=== PATIENT | male | born 1955 | race Caucasian/White ===

== ENCOUNTER 2016-09-21 20:33 | Inpatient (IN) | payer MEDICARE ==
[~2016-09-21] VITALS: Ht 185.4 cm; Wt 133.0 kg
[~2016-09-21 20:33] MED LIST: BENTYL20 MG PO; CHILDREN'S ASPI81 MG PO; DIABETA2.5 MG PO; GLUCOPHAGE1000 MG PO; HALDOL0.5 MG PO; HCTZ25 MG PO; KEFLEX500 MG PO; MOBIC7.5 MG PO; NORVASC5 MG PO; PRAVASTATIN SOD20 MG PO; PRAZOSIN HCL1 MG PO; SULFAMETHOXAZO1 EACH PO; TYLENOL325 M1 PO; ZANTAC150 MG PO; ZESTRIL40 MG PO; ZOLOFT100 MG PO
[2016-09-21 22:05] LABS: BASO % 0.4 % (0.2-1.2); EOS # 0.2 10_X3_uL (0.0-0.5); EOS % 2.1 % (0.8-7.0); GRAN # 7.8 10_X3_uL (1.8-5.4); GRAN % 72.7 % (34.0-67.9); HEMATOCRIT 34.6 % (40-51); HEMOGLOBIN 11.5 g/dL (13.7-17.5); LYMPH # 1.9 10_X3_uL (1.3-3.6); LYMPH % 17.9 % (21.8-53.1); MEAN CORPUSCULAR HEMOGLOBIN 28.3 pg (27.0-33.0); MEAN CORPUSCULAR HGB CONC 33.2 g/dL (32.0-36.0); MEAN CORPUSCULAR VOLUME 85.2 fL (79-92); MEAN PLATELET VOLUME 10.7 fl (7.5-11.5); MONO # 0.7 10_X3_uL (0.3-0.8); MONO % 6.9 % (5.3-12.2); PLATELET COUNT 302 x10_3/uL (163-337); RED BLOOD COUNT 4.06 x10_6/uL (4.6-6.1); RED CELL DISTRIBUTION WIDTH 14.5 % (11.6-14.4); WHITE BLOOD COUNT 10.7 x10_3/uL (4.2-9.1)
[2016-09-21 22:21] LABS: ALBUMIN 3.3 gm/dL (3.4-5.0); BILIRUBIN,TOTAL 0.21 mg/dL (0.0-1.0); CREATININE 1.4 mg/dL (0.6-1.3); POTASSIUM 5.1 mmol/L (3.5-5.1); TOTAL PROTEIN 7.6 gm/dL (6.4-8.2)
[2016-09-21 23:27] LABS: ERYTHROCYTE SEDIMENTATION RATE 8 mm/hr (0-10)
[2016-09-22 07:21] LABS: HEMATOCRIT 28.2 % (40-51); HEMOGLOBIN 9.2 g/dL (13.7-17.5); MEAN CORPUSCULAR HEMOGLOBIN 28.5 pg (27.0-33.0); MEAN CORPUSCULAR HGB CONC 32.6 g/dL (32.0-36.0); MEAN CORPUSCULAR VOLUME 87.3 fL (79-92); MEAN PLATELET VOLUME 10.9 fl (7.5-11.5); RED BLOOD COUNT 3.23 x10_6/uL (4.6-6.1); RED CELL DISTRIBUTION WIDTH 14.5 % (11.6-14.4); WHITE BLOOD COUNT 9.4 x10_3/uL (4.2-9.1)
[2016-09-22 07:39] LABS: BLOOD UREA NITROGEN 30 mg/dL (7-18); CALCIUM 8.3 mg/dL (8.7-10.7); CARBON DIOXIDE 23 mmol/L (21-32); CREATININE 1.2 mg/dL (0.6-1.3); GLUCOSE,RANDOM 139 mg/dL (70-99); SODIUM 139 mmol/L (136-145)
[2016-09-24 06:51] LABS: BASO % 0.4 % (0.2-1.2); EOS # 0.3 10_X3_uL (0.0-0.5); EOS % 4.3 % (0.8-7.0); GRAN # 4.7 10_X3_uL (1.8-5.4); GRAN % 62.9 % (34.0-67.9); HEMATOCRIT 27.6 % (40-51); HEMOGLOBIN 8.5 g/dL (13.7-17.5); LYMPH # 1.8 10_X3_uL (1.3-3.6); LYMPH % 23.6 % (21.8-53.1); MEAN CORPUSCULAR HEMOGLOBIN 26.7 pg (27.0-33.0); MEAN CORPUSCULAR HGB CONC 30.8 g/dL (32.0-36.0); MEAN CORPUSCULAR VOLUME 86.8 fL (79-92); MEAN PLATELET VOLUME 10.7 fl (7.5-11.5); MONO # 0.7 10_X3_uL (0.3-0.8); MONO % 8.8 % (5.3-12.2); PLATELET COUNT 283 x10_3/uL (163-337); RED BLOOD COUNT 3.18 x10_6/uL (4.6-6.1); RED CELL DISTRIBUTION WIDTH 14.3 % (11.6-14.4); WHITE BLOOD COUNT 7.5 x10_3/uL (4.2-9.1)
[2016-09-24 06:58] LABS: CALCIUM 8.3 mg/dL (8.7-10.7); CARBON DIOXIDE 24 mmol/L (21-32); CREATININE 1.2 mg/dL (0.6-1.3); GLUCOSE,RANDOM 126 mg/dL (70-99); POTASSIUM 4.7 mmol/L (3.5-5.1); SODIUM 142 mmol/L (136-145)
[2016-09-24 07:16] LABS: BLOOD UREA NITROGEN 22 mg/dL (7-18)
[2016-09-25 07:34] LABS: BASO % 0.4 % (0.2-1.2); EOS # 0.3 10_X3_uL (0.0-0.5); EOS % 4.5 % (0.8-7.0); GRAN # 5.2 10_X3_uL (1.8-5.4); GRAN % 70.8 % (34.0-67.9); HEMATOCRIT 28.5 % (40-51); HEMOGLOBIN 9.6 g/dL (13.7-17.5); LYMPH # 1.3 10_X3_uL (1.3-3.6); LYMPH % 17.1 % (21.8-53.1); MEAN CORPUSCULAR HEMOGLOBIN 28.9 pg (27.0-33.0); MEAN CORPUSCULAR HGB CONC 33.7 g/dL (32.0-36.0); MEAN CORPUSCULAR VOLUME 85.8 fL (79-92); MONO # 0.5 10_X3_uL (0.3-0.8); MONO % 7.2 % (5.3-12.2); PLATELET COUNT 297 x10_3/uL (163-337); RED BLOOD COUNT 3.32 x10_6/uL (4.6-6.1); RED CELL DISTRIBUTION WIDTH 14.2 % (11.6-14.4); WHITE BLOOD COUNT 7.4 x10_3/uL (4.2-9.1)
[2016-09-25 07:44] LABS: BLOOD UREA NITROGEN 18 mg/dL (7-18); CALCIUM 8.3 mg/dL (8.7-10.7); CARBON DIOXIDE 23 mmol/L (21-32); CREATININE 1.1 mg/dL (0.6-1.3); GLUCOSE,RANDOM 137 mg/dL (70-99); POTASSIUM 4.5 mmol/L (3.5-5.1); SODIUM 141 mmol/L (136-145)
[2016-09-26 06:24] LABS: BASO % 0.4 % (0.2-1.2); EOS # 0.4 10_X3_uL (0.0-0.5); EOS % 4.6 % (0.8-7.0); GRAN # 5.4 10_X3_uL (1.8-5.4); GRAN % 68.3 % (34.0-67.9); HEMATOCRIT 28.7 % (40-51); HEMOGLOBIN 9.5 g/dL (13.7-17.5); LYMPH # 1.6 10_X3_uL (1.3-3.6); LYMPH % 19.7 % (21.8-53.1); MEAN CORPUSCULAR HEMOGLOBIN 28.6 pg (27.0-33.0); MEAN CORPUSCULAR HGB CONC 33.1 g/dL (32.0-36.0); MEAN CORPUSCULAR VOLUME 86.4 fL (79-92); MONO # 0.6 10_X3_uL (0.3-0.8); PLATELET COUNT 280 x10_3/uL (163-337); RED BLOOD COUNT 3.32 x10_6/uL (4.6-6.1); RED CELL DISTRIBUTION WIDTH 14.3 % (11.6-14.4); WHITE BLOOD COUNT 7.9 x10_3/uL (4.2-9.1)
[2016-09-26 06:44] LABS: ALBUMIN 2.6 gm/dL (3.4-5.0); ALKALINE PHOSPHATASE 105 U/L (50-136); ALT/SGPT 6 U/L (7.53-40.17); AST/SGOT 12 U/L (6.66-35.34); BLOOD UREA NITROGEN 19 mg/dL (7-18); CALCIUM 8.1 mg/dL (8.7-10.7); CARBON DIOXIDE 23 mmol/L (21-32); CREATININE 1.1 mg/dL (0.6-1.3); GLUCOSE,RANDOM 139 mg/dL (70-99); POTASSIUM 4.9 mmol/L (3.5-5.1); SODIUM 138 mmol/L (136-145); TOTAL PROTEIN 5.9 gm/dL (6.4-8.2)
[2016-09-26 06:50] LABS: BILIRUBIN,TOTAL < 0.15 mg/dL (0.0-1.0)
[2016-09-27 07:08] LABS: BASO % 0.4 % (0.2-1.2); EOS # 0.3 10_X3_uL (0.0-0.5); EOS % 4.6 % (0.8-7.0); GRAN # 4.5 10_X3_uL (1.8-5.4); HEMATOCRIT 28.2 % (40-51); LYMPH # 1.8 10_X3_uL (1.3-3.6); LYMPH % 24.8 % (21.8-53.1); MEAN CORPUSCULAR HEMOGLOBIN 27.6 pg (27.0-33.0); MEAN CORPUSCULAR HGB CONC 31.9 g/dL (32.0-36.0); MEAN CORPUSCULAR VOLUME 86.5 fL (79-92); MEAN PLATELET VOLUME 10.1 fl (7.5-11.5); MONO # 0.5 10_X3_uL (0.3-0.8); MONO % 7.2 % (5.3-12.2); PLATELET COUNT 300 x10_3/uL (163-337); RED BLOOD COUNT 3.26 x10_6/uL (4.6-6.1); RED CELL DISTRIBUTION WIDTH 14.4 % (11.6-14.4); WHITE BLOOD COUNT 7.2 x10_3/uL (4.2-9.1)
[2016-09-27 07:23] LABS: BLOOD UREA NITROGEN 19 mg/dL (7-18); CALCIUM 8.3 mg/dL (8.7-10.7); CARBON DIOXIDE 25 mmol/L (21-32); CREATININE 1.2 mg/dL (0.6-1.3); GLUCOSE,RANDOM 133 mg/dL (70-99); POTASSIUM 4.5 mmol/L (3.5-5.1); SODIUM 141 mmol/L (136-145)
[2016-09-28 07:54] LABS: HEMATOCRIT 29.8 % (40-51); HEMOGLOBIN 9.6 g/dL (13.7-17.5); MEAN CORPUSCULAR HEMOGLOBIN 27.8 pg (27.0-33.0); MEAN CORPUSCULAR HGB CONC 32.2 g/dL (32.0-36.0); MEAN CORPUSCULAR VOLUME 86.4 fL (79-92); MEAN PLATELET VOLUME 9.9 fl (7.5-11.5); RED BLOOD COUNT 3.45 x10_6/uL (4.6-6.1); RED CELL DISTRIBUTION WIDTH 14.3 % (11.6-14.4); WHITE BLOOD COUNT 7.5 x10_3/uL (4.2-9.1)
[2016-09-28 08:32] LABS: ALBUMIN 2.7 gm/dL (3.4-5.0); ALKALINE PHOSPHATASE 102 U/L (50-136); ALT/SGPT 5 U/L (7.53-40.17); AST/SGOT 13 U/L (6.66-35.34); BLOOD UREA NITROGEN 17 mg/dL (7-18); CALCIUM 8.3 mg/dL (8.7-10.7); CARBON DIOXIDE 26 mmol/L (21-32); CREATININE 1.2 mg/dL (0.6-1.3); GLUCOSE,RANDOM 142 mg/dL (70-99); POTASSIUM 4.2 mmol/L (3.5-5.1); SODIUM 140 mmol/L (136-145); TOTAL PROTEIN 6.1 gm/dL (6.4-8.2)
[2016-09-28 08:33] LABS: BILIRUBIN,TOTAL < 0.15 mg/dL (0.0-1.0)
== END 2016-09-29 11:59 | disposition home or self-care (01) | DRG 256 ==
LOC: MS 20:33
PROVIDERS: ADMIT Family Medicine
PROC: 0Y6W0Z1 Detachment at Left 4th Toe, High, Open Approach (ICD-10-PCS; principal; 2016-09-22)
PROC: 0DB78ZX Excision of Stomach, Pylorus, Via Natural or Artificial Opening Endoscopic, Diagnostic (ICD-10-PCS; 2016-09-25)
PROC: 0DB48ZX Excision of Esophagogastric Junction, Via Natural or Artificial Opening Endoscopic, Diagnostic (ICD-10-PCS; 2016-09-25)
DX: E11.52 Type 2 diabetes mellitus with diabetic peripheral angiopathy with gangrene (principal); I96 Gangrene, not elsewhere classified; M86.172 Other acute osteomyelitis, left ankle and foot; A49.02 Methicillin resistant Staphylococcus aureus infection, unspecified site; L03.032 Cellulitis of left toe; E11.628 Type 2 diabetes mellitus with other skin complications; I10 Essential (primary) hypertension; Z83.3 Family history of diabetes mellitus; Z80.9 Family history of malignant neoplasm, unspecified; Z82.49 Family history of ischemic heart disease and other diseases of the circulatory system; Z86.73 Personal history of transient ischemic attack (TIA), and cerebral infarction without residual deficits; K21.9 Gastro-esophageal reflux disease without esophagitis; K44.9 Diaphragmatic hernia without obstruction or gangrene; K29.70 Gastritis, unspecified, without bleeding; D64.9 Anemia, unspecified; G62.9 Polyneuropathy, unspecified; Z88.0 Allergy status to penicillin; Z79.899 Other long term (current) drug therapy; Z79.82 Long term (current) use of aspirin; Z79.02 Long term (current) use of antithrombotics/antiplatelets; Z79.84 Long term (current) use of oral hypoglycemic drugs; Z98.890 Other specified postprocedural states
CPT/HCPCS: 36415; 71020; 73700; 78315; 80048; 80053; 80061; 80202; 82962; 83036; 83605; 85025; 85651; 87040; 87070; 87186; 93005; 99070; A9503; J2704; J3370; J7050

== ENCOUNTER 2017-01-07 18:43 | Emergency (ER) | payer MEDICARE ==
[2017-01-07 23:48] LABS: BASO % 0.5 % (0.2-1.2); EOS # 0.5 10_X3_uL (0.0-0.5); EOS % 5.7 % (0.8-7.0); GRAN # 5.4 10_X3_uL (1.8-5.4); GRAN % 63.7 % (34.0-67.9); HEMATOCRIT 31.1 % (40-51); LYMPH # 2.1 10_X3_uL (1.3-3.6); LYMPH % 24.3 % (21.8-53.1); MEAN CORPUSCULAR HGB CONC 32.2 g/dL (32.0-36.0); MEAN CORPUSCULAR VOLUME 77.8 fL (79-92); MEAN PLATELET VOLUME 10.1 fl (7.5-11.5); MONO # 0.5 10_X3_uL (0.3-0.8); MONO % 5.8 % (5.3-12.2); PLATELET COUNT 266 x10_3/uL (163-337); RED CELL DISTRIBUTION WIDTH 16.7 % (11.6-14.4); WHITE BLOOD COUNT 8.5 x10_3/uL (4.2-9.1)
[2017-01-07 23:58] LABS: PROTHROMBIN TIME (PATIENT) 10.3 SECONDS (9.6-10.8)
[2017-01-08 00:03] LABS: ALBUMIN 3.3 gm/dL (3.4-5.0); ALKALINE PHOSPHATASE 135 U/L (50-136); ALT/SGPT 8 U/L (7.53-40.17); AST/SGOT 14 U/L (6.66-35.34); BILIRUBIN,TOTAL < 0.15 mg/dL (0.0-1.0); BLOOD UREA NITROGEN 27 mg/dL (7-18); CALCIUM 8.8 mg/dL (8.7-10.7); CARBON DIOXIDE 23 mmol/L (21-32); CREATINE KINASE 76 U/L (35-232); CREATININE 1.4 mg/dL (0.6-1.3); GLUCOSE,RANDOM 133 mg/dL (70-99); POTASSIUM 5.2 mmol/L (3.5-5.1); SODIUM 138 mmol/L (136-145); TOTAL PROTEIN 7.1 gm/dL (6.4-8.2)
== END 2017-01-08 00:23 | disposition home or self-care (01) ==
LOC: ER 18:43
PROVIDERS: Emergency Medicine
DX: R51 Headache (principal); H53.452 Other localized visual field defect, left eye; E11.9 Type 2 diabetes mellitus without complications; I10 Essential (primary) hypertension; K21.9 Gastro-esophageal reflux disease without esophagitis; G62.9 Polyneuropathy, unspecified; Z86.73 Personal history of transient ischemic attack (TIA), and cerebral infarction without residual deficits; Z89.422 Acquired absence of other left toe(s); Z88.0 Allergy status to penicillin; Z79.899 Other long term (current) drug therapy; Z79.84 Long term (current) use of oral hypoglycemic drugs; Z79.82 Long term (current) use of aspirin; Z79.02 Long term (current) use of antithrombotics/antiplatelets
CPT/HCPCS: 36415; 70450; 80053; 82550; 82553; 85025; 85610; 99284-25